=== PATIENT | female | born 1970 ===

== ENCOUNTER 2017-05-09 08:26 | Emergency (ER) | payer SELFPAY ==
--- NOTE | 2017-05-09 09:09 | UC ---
Pa Soler Claudia, scribed for Jose Humphrey MD on 05/09/17 at 0900 . Ear Complaint HPI - HPI Summary HPI Summary: 46 year old female presents to the [facility] with right ear pain for the past 7 days. She describes the pain as a pressure and notes pain is aggravated when she touches it. She notes the pain does radiate down her neck. Pt denies any recently swimming. Pt notes that it feels "clogged". Pt denies any fever, chills , nasal discharge, cough. Pt has a PMHx of Psoriasis but states she only has it behind her ears. She notes that she cuts grass frequently but is unsure if it is related to her right ear pain. She denies any Dx of HTN. - History of Current Complaint Chief Complaint: UCEar Stated Complaint: EAR PAIN Time Seen by Provider: 05/09/17 08:53 Hx Obtained From: Patient Onset/Duration: Gradual Onset, Lasting Days, Still Present - Allergies/Home Medications Allergies/Adverse Reactions: Allergies Allergy/AdvReac Type Severity Reaction Status Date / Time Sulfa Antibiotics Allergy Rash Verified 05/09/17 08:40 PMH/Surg Hx/FS Hx/Imm Hx Previously Healthy: Yes Other Cardiovascular History: NO PMHX DX OF HTN - Surgical History Surgical History: Yes Surgery Procedure, Year, and Place: X2, tubal ligation - Family History Known Family History: Positive: Hypertension Family History: RA - Social History Occupation: Employed Part-time Lives: With Family Alcohol Use: Weekly Substance Use Type: Marijuana Substance Use Comment - Amount & Last Used: weekly Smoking Status (MU): Heavy Every Day Tobacco Smoker Type: Cigarettes Review of Systems Constitutional: Negative - NO FEVER, CHILLS Skin: Negative Eyes: Negative ENT: Ear Ache, Nasal Discharge - NO NASAL DISCHARGE Respiratory: Negative - NO COUGH Cardiovascular: Negative Gastrointestinal: Negative Genitourinary: Negative Motor: Negative Neurovascular: Negative Musculoskeletal: Negative Neurological: Negative Psychological: Negative All Other Systems Reviewed And Are Negative: Yes Physical Exam Triage Information Reviewed: Yes Appearance: Well-Appearing, No Pain Distress, Obese Vital Signs: Initial Vital Signs Temp 97.6 F 05/09/17 08:37 Pulse 101 05/09/17 08:37 Resp 18 05/09/17 08:37 BP 161/103 05/09/17 08:37 Pulse Ox 98 05/09/17 08:37 Vital Signs Reviewed: Yes ENT: Positive: Normal ENT inspection, Hearing grossly normal, Pharynx normal, TMs normal, Other: - + TENDERNESS EXTERNAL RIGHT EAR, + ERYTHEMA OF THE RIGHT EAR CANAL , NO DISCHARGE. Negative: TM bulging, TM dull, TM red Neck: Positive: Supple Respiratory: Positive: Chest non-tender, Lungs clear, Normal breath sounds Cardiovascular: Positive: RRR, No Murmur, Pulses Normal Abdominal Exam: Normal Musculoskeletal Exam: Normal Neurological: Positive: Alert Ear Complaint Course/Dx - Differential Dx/Diagnosis Provider Diagnoses: OTITIS EXTERNA RIGHT EAR. ELEVATED BLOOD PRESSURE Discharge - Discharge Plan Condition: Stable Disposition: HOME Prescriptions: Amoxicillin CAP* [Amoxicillin 500 MG CAP*] 500 mg PO TID #30 cap Neomyc/Polym/HC 1% OTIC SUSP* [Cortisporin Otic Susp 1%*] 4 drop RIGHT EAR QID # 1 btl Patient Education Materials: Otitis Externa (ED), Hypertension (ED) Referrals: [facility] [Outside] - As Soon As Possible Armand Greer MD [Primary Care Provider] - 7 Days Additional Instructions: PLEASE CHECK YOUR BLOOD PRESSURE DAILY , PLEASE FOLLOW UP WITH YOUR PCP FOR THE EVALUATION OF HIGH BLOOD PRESSURE , The documentation as recorded by the Pa vilchis Claudia accurately reflects the service I personally performed and the decisions made by , Jose Humphrey MD.
== END 2017-05-09 09:08 | disposition home or self-care (01) ==
LOC: UCEAST 08:26
DX: Z72.0 Tobacco use (principal); H60.91 Unspecified otitis externa, right ear; R03.0 Elevated blood-pressure reading, without diagnosis of hypertension
CPT/HCPCS: 99202; G0463